=== PATIENT | female | born 1965 | race Caucasian/White ===

== ENCOUNTER 2017-09-27 11:21 | Inpatient (IN) | payer OTHER, MEDICAID ==
[~2017-09-27] VITALS: Ht 162.6 cm; Wt 63.1 kg
[~2017-09-27 11:21] MED LIST: LURA80 PO
[2017-09-27] MEDS ORDERED: DiphenhydrAMINE HCL 50 MG/ML VIAL IM ONE (11:30)
[2017-09-27] MEDS ORDERED: HALOPERIDOL LACTATE 5 MG/ML VIAL IM ONE (11:30)
[2017-09-27] MEDS ORDERED: LORazepam 2 MG/ML VIAL IM ONE (11:30)
[2017-09-27 12:09] LABS: BASOPHILS % (AUTO) 0.8 % (0.0-2.0); EOSINOPHILS % (AUTO) 1.5 % (1.0-6.0); HEMATOCRIT 36.3 % (36-46); HEMOGLOBIN 12.1 g/dL (12.0-16.0); LYMPHOCYTES # (AUTO) 2.1 K/uL (1.0-4.8); LYMPHOCYTES % (AUTO) 46.4 % (22.0-44.0); MEAN CORPUSCULAR HEMOGLOBIN 29.9 pg (26.0-34.0); MEAN CORPUSCULAR HGB CONC 33.4 G/dL (31.0-37.0); MEAN CORPUSCULAR VOLUME 89 fL (80-100); MONOCYTES # (AUTO) 0.4 K/uL (0.1-1.0); NEUTROPHILS # (AUTO) 1.9 K/uL (1.8-7.7); NEUTROPHILS % (AUTO) 43.3 % (40.0-70.0); PLATELET COUNT (AUTO) 288 K/uL (150-450); RED BLOOD CELL COUNT(AUTO) 4.06 MIL/uL (4.00-5.20); RED CELL DISTRIBUTION WIDTH 17.4 % (11.5-14.5)
[2017-09-27 12:25] LABS: ALANINE AMINOTRANSFERASE 23 U/L (12-78); ALBUMIN 3.3 g/dL (3.4-5.0); ALKALINE PHOSPHATASE 66 U/L (46-116); ANION GAP 11 mmol/L (8-16); ASPARTATE AMINOTRANSFERASE 20 U/L (15-37); BILIRUBIN,TOTAL 0.4 mg/dL (0.1-1.0); CALCIUM, TOTAL 8.8 mg/dL (8.8-10.5); CARBON DIOXIDE 27 mmol/L (22-29); CHLORIDE 105 mmol/L (98-107); CREATININE 0.53 mg/dL (0.60-1.30); GLOMERULAR FILTR. RATE CALC > 60 mL/min (>60); GLUCOSE,RANDOM 113 mg/dL (70-110); SODIUM SERUM 143 mmol/L (136-145); TOTAL PROTEIN, SERUM 6.6 g/dL (6.4-8.2); UREA NITROGEN, BLOOD 10 mg/dL (7-18)
[2017-09-27 12:27] LABS: POTASSIUM 2.9 mmol/L (3.5-5.1)
[2017-09-27] MEDS: POTASSIUM CHLORIDE 20 MEQ ER TABLET PO ONE ×2 (12:45→12:52)
[2017-09-27] MEDS ORDERED: HALOPERIDOL 5 MG TABLET PO PRN (13:45)
[2017-09-27] MEDS ORDERED: ZOLPIDEM TARTRATE 10 MG TABLET PO PRN (13:45)
[2017-09-27 18:50] VITALS: BP 103/62
[2017-09-27] MEDS ORDERED: INFLUENZA VIRUS VACCINE QVS 2017-18 (3YR+)/PF 60 MCG/0.5 ML SYRINGE IM ONE (19:15)
[2017-09-28] MEDS ORDERED: POTASSIUM CHLORIDE 10% 40 MEQ/30 ML LIQUID UDCUP PO ONE (10:00)
[2017-09-29 09:01] VITALS: BP 125/75
[2017-09-29] MEDS: OLANZapine 5 MG RAPDIS TABLET PO SCH (16:43)
[2017-09-30] MEDS: OLANZapine 5 MG RAPDIS TABLET PO SCH ×2 (08:51→17:00)
[2017-09-30] MEDS ORDERED: HALOPERIDOL LACTATE 5 MG/ML VIAL ONE (16:27)
[2017-09-30] MEDS ORDERED: LORazepam 2 MG/ML VIAL ONE (16:27)
[2017-09-30] MEDS ORDERED: DiphenhydrAMINE HCL 50 MG/ML VIAL ONE (16:27)
[2017-09-30] MEDS ORDERED: LORazepam 2 MG/ML VIAL IM ONE (16:30)
[2017-09-30] MEDS ORDERED: HALOPERIDOL LACTATE 5 MG/ML VIAL IM ONE (16:30)
[2017-09-30] MEDS ORDERED: DiphenhydrAMINE HCL 50 MG/ML VIAL IM ONE (16:30)
[2017-10-01] MEDS: OLANZapine 5 MG RAPDIS TABLET PO SCH ×2 (09:00→17:00)
[2017-10-02] MEDS: OLANZapine 5 MG RAPDIS TABLET PO SCH ×2 (08:03→16:23)
[2017-10-02 09:00] VITALS: BP 131/94
[2017-10-02] MEDS: NICOTINE 14 MG/24 HOUR PATCH TD SCH (20:49)
[2017-10-03 03:51] VITALS: BP 128/88
[2017-10-03] MEDS: OLANZapine 5 MG RAPDIS TABLET PO SCH ×2 (08:38→17:00)
[2017-10-03] MEDS: NICOTINE 14 MG/24 HOUR PATCH TD SCH (08:38)
[2017-10-03] MEDS: IBUPROFEN 400 MG TABLET PO PRN (10:21)
[2017-10-03] MEDS ORDERED: LORazepam 2 MG/ML VIAL ONE (16:33)
[2017-10-03] MEDS ORDERED: DiphenhydrAMINE HCL 50 MG/ML VIAL ONE (16:33)
[2017-10-03] MEDS ORDERED: DiphenhydrAMINE HCL 50 MG/ML VIAL IM ONE (16:45)
[2017-10-03] MEDS ORDERED: LORazepam 2 MG/ML VIAL IM ONE (16:45)
[2017-10-03] MEDS ORDERED: HALOPERIDOL LACTATE 5 MG/ML VIAL IM ONE (16:45)
[2017-10-04] MEDS: NICOTINE 14 MG/24 HOUR PATCH TD SCH (08:40)
[2017-10-04] MEDS: OLANZapine 5 MG RAPDIS TABLET PO SCH ×2 (08:40→17:00)
[2017-10-05] MEDS: OLANZapine 5 MG RAPDIS TABLET PO SCH ×2 (08:33→17:00)
[2017-10-05] MEDS: NICOTINE 14 MG/24 HOUR PATCH TD SCH (08:33)
[2017-10-05 08:38] VITALS: BP 119/70
[2017-10-05] MEDS ORDERED: IOVERSOL 350 MG/ML 100 ML VIAL ONE (10:31)
[2017-10-06] MEDS: NICOTINE 14 MG/24 HOUR PATCH TD SCH ×2 (09:00→09:41)
[2017-10-06] MEDS: OLANZapine 5 MG RAPDIS TABLET PO SCH ×3 (09:00→17:00)
[2017-10-06 16:12] VITALS: BP 128/85
[2017-10-07] MEDS: IBUPROFEN 400 MG TABLET PO PRN (05:18)
[2017-10-07] MEDS: NICOTINE 14 MG/24 HOUR PATCH TD SCH (08:23)
[2017-10-07] MEDS: OLANZapine 5 MG RAPDIS TABLET PO SCH ×2 (08:23→17:00)
[2017-10-08 08:03] LABS: HEMATOCRIT 37.3 % (36-46); HEMOGLOBIN 12.5 g/dL (12.0-16.0); LYMPHOCYTES # (AUTO) 1.8 K/uL (1.0-4.8); LYMPHOCYTES % (AUTO) 34.3 % (22.0-44.0); MEAN CORPUSCULAR HEMOGLOBIN 30.3 pg (26.0-34.0); MEAN CORPUSCULAR HGB CONC 33.7 G/dL (31.0-37.0); MEAN CORPUSCULAR VOLUME 90 fL (80-100); MONOCYTES # (AUTO) 0.4 K/uL (0.1-1.0); MONOCYTES % (AUTO) 6.7 % (2.0-9.0); PLATELET COUNT (AUTO) 366 K/uL (150-450); RED BLOOD CELL COUNT(AUTO) 4.15 MIL/uL (4.00-5.20); RED CELL DISTRIBUTION WIDTH 16.7 % (11.5-14.5)
[2017-10-08 08:23] LABS: HEMOGLOBIN A1C 5.7 % (4.5-6.2)
[2017-10-08 08:38] LABS: ALANINE AMINOTRANSFERASE 32 U/L (12-78); ALBUMIN 3.8 g/dL (3.4-5.0); ALKALINE PHOSPHATASE 66 U/L (46-116); ANION GAP 7 mmol/L (8-16); ASPARTATE AMINOTRANSFERASE 17 U/L (15-37); BILIRUBIN,TOTAL 0.2 mg/dL (0.1-1.0); CALCIUM, TOTAL 9.1 mg/dL (8.8-10.5); CARBON DIOXIDE 32 mmol/L (22-29); CHLORIDE 102 mmol/L (98-107); CHOL/HDL RATIO 3.4 (3.9-5.7); CHOLESTEROL 206 mg/dL (131-200); CREATININE 0.57 mg/dL (0.60-1.30); GLOMERULAR FILTR. RATE CALC > 60 mL/min (>60); GLUCOSE,RANDOM 100 mg/dL (70-110); HDL CHOLESTEROL 60 mg/dL (40-60); LDL CHOL (CALC.) 134 mg/dL (0-130); POTASSIUM 4.5 mmol/L (3.5-5.1); SODIUM SERUM 141 mmol/L (136-145); THYROID STIMULATING HORMONE 2.15 uIU/mL (0.36-3.74); TOTAL PROTEIN, SERUM 7.2 g/dL (6.4-8.2); TRIGLYCERIDES 59 mg/dL (15-150); UREA NITROGEN, BLOOD 16 mg/dL (7-18)
[2017-10-08] MEDS: NICOTINE 14 MG/24 HOUR PATCH TD SCH (08:47)
[2017-10-08] MEDS: OLANZapine 5 MG RAPDIS TABLET PO SCH ×2 (08:47→17:00)
[2017-10-09] MEDS: NICOTINE 14 MG/24 HOUR PATCH TD SCH (09:00)
[2017-10-09] MEDS: OLANZapine 5 MG RAPDIS TABLET PO SCH ×2 (09:00→16:22)
[2017-10-09] MEDS ORDERED: LORazepam 2 MG/ML VIAL IM ONE (09:30)
[2017-10-09] MEDS ORDERED: HALOPERIDOL LACTATE 5 MG/ML VIAL IM ONE (09:30)
[2017-10-09] MEDS ORDERED: DiphenhydrAMINE HCL 50 MG/ML VIAL IM ONE (09:30)
[2017-10-10] MEDS: OLANZapine 5 MG RAPDIS TABLET PO SCH ×2 (08:46→17:00)
[2017-10-10] MEDS: NICOTINE 14 MG/24 HOUR PATCH TD SCH (08:46)
[2017-10-11 03:20] VITALS: BP 126/63
[2017-10-11] MEDS: ACETAMINOPHEN 325 MG TABLET PO PRN (03:25)
[2017-10-11] MEDS: NICOTINE 14 MG/24 HOUR PATCH TD SCH (08:04)
[2017-10-11] MEDS: OLANZapine 5 MG RAPDIS TABLET PO SCH ×2 (08:04→17:00)
[2017-10-11] MEDS: LORazepam 2 MG TABLET PO PRN (08:36)
[2017-10-11 09:00] VITALS: BP 133/89
[2017-10-11 16:42] VITALS: BP 109/68
[2017-10-12] MEDS: NICOTINE 14 MG/24 HOUR PATCH TD SCH (08:13)
[2017-10-12] MEDS: OLANZapine 5 MG RAPDIS TABLET PO SCH ×2 (08:13→16:36)
[2017-10-13] MEDS: OLANZapine 5 MG RAPDIS TABLET PO SCH ×2 (08:41→16:12)
[2017-10-13] MEDS: NICOTINE 14 MG/24 HOUR PATCH TD SCH (08:41)
[2017-10-14 06:28] VITALS: BP 115/72
[2017-10-14] MEDS: OLANZapine 5 MG RAPDIS TABLET PO SCH ×2 (09:00→16:20)
[2017-10-14] MEDS: NICOTINE 14 MG/24 HOUR PATCH TD SCH (09:00)
[2017-10-14] MEDS: ACETAMINOPHEN 325 MG TABLET PO PRN (20:21)
[2017-10-14] MEDS ORDERED: ACETAMINOPHEN 325 MG TABLET PO PRN (21:30)
[2017-10-15 01:55] VITALS: BP 100/69
[2017-10-15] MEDS: NICOTINE 14 MG/24 HOUR PATCH TD SCH (07:59)
[2017-10-15] MEDS: OLANZapine 5 MG RAPDIS TABLET PO SCH ×2 (07:59→17:00)
[2017-10-15] MEDS ORDERED: HALOPERIDOL LACTATE 5 MG/ML VIAL IM PRN ×2 (10:15→17:45)
[2017-10-15 16:46] VITALS: BP 135/61
[2017-10-16 05:11] VITALS: BP 132/65
[2017-10-16] MEDS: HALOPERIDOL 10 MG TABLET PO SCH ×2 (08:06→16:28)
[2017-10-16] MEDS: NICOTINE 14 MG/24 HOUR PATCH TD SCH (08:06)
[2017-10-17] MEDS: HALOPERIDOL 10 MG TABLET PO SCH ×3 (08:45→16:58)
[2017-10-17] MEDS: NICOTINE 14 MG/24 HOUR PATCH TD SCH (08:46)
[2017-10-18 02:53] VITALS: BP 127/66
[2017-10-18] MEDS: HALOPERIDOL 10 MG TABLET PO SCH ×2 (08:31→16:25)
[2017-10-18] MEDS: LORazepam 2 MG TABLET PO PRN ×2 (08:31→18:10)
[2017-10-18] MEDS: NICOTINE 14 MG/24 HOUR PATCH TD SCH (08:32)
[2017-10-18 16:17] VITALS: BP 136/83
[2017-10-19] MEDS: NICOTINE 14 MG/24 HOUR PATCH TD SCH (07:58)
[2017-10-19] MEDS: HALOPERIDOL 10 MG TABLET PO SCH ×2 (07:58→16:23)
[2017-10-19] MEDS: LORazepam 2 MG TABLET PO PRN (08:41)
[2017-10-20] MEDS: LORazepam 2 MG TABLET PO PRN ×4 (01:00→17:46)
[2017-10-20 01:03] VITALS: BP 104/75
[2017-10-20] MEDS: HALOPERIDOL 10 MG TABLET PO SCH ×2 (08:00→16:38)
[2017-10-20] MEDS: NICOTINE 14 MG/24 HOUR PATCH TD SCH (08:01)
[2017-10-21 00:31] VITALS: BP 112/67
[2017-10-21] MEDS: LORazepam 2 MG TABLET PO PRN ×3 (01:31→16:27)
[2017-10-21 08:25] VITALS: BP 117/66
[2017-10-21] MEDS: HALOPERIDOL 10 MG TABLET PO SCH ×2 (08:46→16:11)
[2017-10-21] MEDS: NICOTINE 14 MG/24 HOUR PATCH TD SCH (08:46)
[2017-10-22 00:42] VITALS: BP 110/71
[2017-10-22] MEDS: LORazepam 2 MG TABLET PO PRN ×4 (00:44→18:01)
[2017-10-22] MEDS: HALOPERIDOL 10 MG TABLET PO SCH ×2 (07:50→16:47)
[2017-10-22] MEDS: NICOTINE 14 MG/24 HOUR PATCH TD SCH (07:50)
[2017-10-22 08:23] VITALS: BP 117/76
[2017-10-23 05:46] VITALS: BP 117/75
[2017-10-23 08:07] VITALS: BP 130/69
[2017-10-23] MEDS: NICOTINE 14 MG/24 HOUR PATCH TD SCH (08:10)
[2017-10-23] MEDS: HALOPERIDOL 10 MG TABLET PO SCH (08:10)
[2017-10-23] MEDS: LORazepam 2 MG TABLET PO PRN (08:10)
[2017-10-23] MEDS ORDERED: HALOPERIDOL DECANOATE 100 MG/ML VIAL IM SCH (10:45)
== END 2017-10-23 14:00 | disposition home or self-care (01) | DRG 885 ==
LOC: EMS 11:25 → B3A 17:14 → EDBD 17:14 → B3A 10-17 21:32
PROVIDERS: ADMIT Psychiatry & Neurology Child & Adolescent Psychiatry; ATTEND Psychiatry & Neurology Child & Adolescent Psychiatry
DX: F20.0 Paranoid schizophrenia (principal); Z59.0 Homelessness; E87.6 Hypokalemia; F32.9 Major depressive disorder, single episode, unspecified; F41.9 Anxiety disorder, unspecified; Z91.19 Patient's noncompliance with other medical treatment and regimen
CPT/HCPCS: 83036; 84443; 87081; 90471; 96372; 99285; G0480; J1200; J1630; J1631; J2060

== ENCOUNTER 2022-01-10 15:06 | Emergency (ER) | payer MEDICARE, MEDICAID ==
[~2022-01-10] VITALS: Ht 165.1 cm; Wt 86.4 kg
[~2022-01-10 15:06] MED LIST changes: -LURA80 PO; +LURA80TA2 PO
[2022-01-10 18:52] VITALS: BP 125/83
== END 2022-01-10 19:05 | disposition home or self-care (01) ==
LOC: EMS 15:15
DX: F41.9 Anxiety disorder, unspecified (principal); F32.9 Major depressive disorder, single episode, unspecified; F15.90 Other stimulant use, unspecified, uncomplicated; Z88.6 Allergy status to analgesic agent; Z88.8 Allergy status to other drugs, medicaments and biological substances
CPT/HCPCS: 99283; Z7502

== ENCOUNTER 2022-01-21 08:01 | Inpatient (IN) | payer MEDICARE, MEDICAID ==
[~2022-01-21] VITALS: Ht 165.1 cm; Wt 82.7 kg
[2022-01-21] MEDS ORDERED: GuaiFENesin/D-METHORPHAN [SUGAR-FREE] 200-20MG/10 ML SYRUP UDCUP PO PRN (11:15)
[2022-01-21] MEDS ORDERED: ZOLPIDEM TARTRATE 10 MG TABLET PO PRN (11:15)
[2022-01-21] MEDS ORDERED: MAGNESIUM HYDROXIDE SUSPENSION 30 ML UDCUP PO PRN (11:15)
[2022-01-21] MEDS ORDERED: TUBERCULIN, PURIFIED PROTEIN DERIVATIVE 5 TU/0.1 ML SYRINGE ID ONE (11:15)
[2022-01-21] MEDS ORDERED: MAG HYDROX/AL HYDROX/SIMETH ES 30 ML SUSPENSION UDCUP PO PRN (11:15)
[2022-01-21] MEDS ORDERED: HydrOXYzine PAMOATE 50 MG CAPSULE PO PRN (11:15)
[2022-01-21] MEDS ORDERED: OLANZapine 5 MG RAPDIS TABLET PO PRN (11:15)
[2022-01-21] MEDS ORDERED: LORazepam 2 MG TABLET PO PRN (11:15)
[2022-01-21] MEDS ORDERED: PROMETHAZINE HCL 25 MG TABLET PO PRN (11:15)
[2022-01-21] MEDS ORDERED: LOPERAMIDE HCL 2 MG CAPSULE PO PRN (11:15)
[2022-01-21 11:19] LABS: ANION GAP 8 mmol/L (8-16); CALCIUM, TOTAL 9.2 mg/dL (8.8-10.5); CARBON DIOXIDE 26 mmol/L (22-29); CHLORIDE 101 mmol/L (98-107); CREATININE 0.42 mg/dL (0.60-1.30); GLUCOSE,RANDOM 108 mg/dL (70-110); POTASSIUM 3.8 mmol/L (3.5-5.1); SODIUM SERUM 135 mmol/L (136-145); UREA NITROGEN, BLOOD 7 mg/dL (7-18)
[2022-01-21 11:20] LABS: COVID AG,FIA SOURCE NASAL SWAB
[2022-01-21 11:21] LABS: GLOMERULAR FILTR. RATE CALC > 60 mL/min (>60)
[2022-01-21 11:23] LABS: ALANINE AMINOTRANSFERASE 21 U/L (12-78); ALBUMIN 3.4 g/dL (3.4-5.0); ALKALINE PHOSPHATASE 85 U/L (46-116); ASPARTATE AMINOTRANSFERASE 17 U/L (15-37); BILIRUBIN,TOTAL 0.2 mg/dL (0.1-1.0); TOTAL PROTEIN, SERUM 7.3 g/dL (6.4-8.2)
[2022-01-21 11:52] LABS: EOSINOPHILS % (AUTO) 0.9 % (1.0-6.0); HEMATOCRIT 41.5 % (36-46); HEMOGLOBIN 13.9 g/dL (12.0-16.0); LYMPHOCYTES # (AUTO) 1.7 K/uL (1.0-4.8); MEAN CORPUSCULAR HEMOGLOBIN 31.1 pg (26.0-34.0); MEAN CORPUSCULAR HGB CONC 33.5 G/dL (31.0-37.0); MEAN CORPUSCULAR VOLUME 93 fL (80-100); MONOCYTES # (AUTO) 0.6 K/uL (0.1-1.0); MONOCYTES % (AUTO) 13.4 % (2.0-9.0); NEUTROPHILS # (AUTO) 2.2 K/uL (1.8-7.7); NEUTROPHILS % (AUTO) 48.7 % (40.0-70.0); PLATELET COUNT (AUTO) 371 K/uL (150-450); RED BLOOD CELL COUNT(AUTO) 4.47 MIL/uL (4.00-5.20); RED CELL DISTRIBUTION WIDTH 15.3 % (11.5-14.5)
[2022-01-21 16:25] VITALS: BP 110/59
[2022-01-21] MEDS: THIAMINE 100 MG TABLET PO SCH (16:27)
[2022-01-21] MEDS: MELATONIN 5 MG TABLET PO SCH (20:22)
[2022-01-21] MEDS ORDERED: OLANZapine 5 MG RAPDIS TABLET PO SCH (21:00)
[2022-01-22 07:16] VITALS: BP 108/62
[2022-01-22] MEDS ORDERED: PNEUMOCOCCAL VACCINE POLYVALENT 0.5 ML VIAL [PPSV23] IM. ONE (08:00)
[2022-01-22 08:04] VITALS: BP 120/61
[2022-01-22] MEDS: FOLIC ACID 1 MG TABLET PO SCH (08:17)
[2022-01-22] MEDS: NALTREXONE HCL 50 MG TABLET PO SCH (08:17)
[2022-01-22] MEDS: THIAMINE 100 MG TABLET PO SCH ×2 (08:17→16:49)
[2022-01-22] MEDS: OMEGA-3/DHA/EPA/FISH OIL 1,000 MG CAPSULE PO SCH (08:17)
[2022-01-22] MEDS: MULTIVITAMINS WITH MINERALS, THERAPEUTIC TABLET PO SCH (08:17)
[2022-01-22] MEDS: GABAPENTIN 300 MG CAPSULE PO PRN (16:13)
[2022-01-22] MEDS: NICOTINE 21 MG/24 HOUR PATCH TD SCH (16:14)
[2022-01-22] MEDS: MELATONIN 5 MG TABLET PO SCH (22:12)
[2022-01-23 00:30] VITALS: BP 117/62
[2022-01-23 04:12] VITALS: BP 114/90
[2022-01-23] MEDS: ACETAMINOPHEN 325 MG TABLET PO PRN ×2 (04:16→09:42)
[2022-01-23 07:26] LABS: BASOPHILS % (AUTO) 0.7 % (0.0-2.0); EOSINOPHILS % (AUTO) 1.5 % (1.0-6.0); HEMATOCRIT 39.6 % (36-46); HEMOGLOBIN 13.3 g/dL (12.0-16.0); LYMPHOCYTES # (AUTO) 1.6 K/uL (1.0-4.8); LYMPHOCYTES % (AUTO) 34.5 % (22.0-44.0); MEAN CORPUSCULAR HGB CONC 33.5 G/dL (31.0-37.0); MEAN CORPUSCULAR VOLUME 92 fL (80-100); MONOCYTES # (AUTO) 0.6 K/uL (0.1-1.0); NEUTROPHILS # (AUTO) 2.4 K/uL (1.8-7.7); NEUTROPHILS % (AUTO) 51.3 % (40.0-70.0); PLATELET COUNT (AUTO) 346 K/uL (150-450); RED BLOOD CELL COUNT(AUTO) 4.28 MIL/uL (4.00-5.20)
[2022-01-23 07:33] LABS: HEMOGLOBIN A1C 5.7 % (3.8-5.6)
[2022-01-23 07:58] LABS: CHOL/HDL RATIO 3.6 (3.9-5.7); FREE T4 (FREE THYROXINE) 1.16 ng/dL (0.76-1.46); THYROID STIMULATING HORMONE 0.56 uIU/mL (0.36-3.74)
[2022-01-23 08:13] VITALS: BP 145/79
[2022-01-23] MEDS: OMEGA-3/DHA/EPA/FISH OIL 1,000 MG CAPSULE PO SCH (08:18)
[2022-01-23] MEDS: THIAMINE 100 MG TABLET PO SCH ×2 (08:18→16:09)
[2022-01-23] MEDS: FOLIC ACID 1 MG TABLET PO SCH (08:18)
[2022-01-23] MEDS: MULTIVITAMINS WITH MINERALS, THERAPEUTIC TABLET PO SCH (08:18)
[2022-01-23] MEDS: NICOTINE 21 MG/24 HOUR PATCH TD SCH (08:19)
[2022-01-23] MEDS: NALTREXONE HCL 50 MG TABLET PO SCH (08:24)
[2022-01-23] MEDS ORDERED: CloZAPine 25 MG TABLET PO SCH (09:00)
[2022-01-23] MEDS ORDERED: HALOPERIDOL LACTATE 5 MG/ML VIAL IM PRN (14:30)
[2022-01-23 16:07] VITALS: BP 117/75
[2022-01-23] MEDS: MELATONIN 5 MG TABLET PO SCH (20:08)
[2022-01-24 06:27] VITALS: BP 144/77
[2022-01-24 08:20] VITALS: BP 142/82
[2022-01-24] MEDS: THIAMINE 100 MG TABLET PO SCH ×2 (08:29→16:08)
[2022-01-24] MEDS: NALTREXONE HCL 50 MG TABLET PO SCH (08:29)
[2022-01-24] MEDS: NICOTINE 21 MG/24 HOUR PATCH TD SCH (08:30)
[2022-01-24] MEDS: MULTIVITAMINS WITH MINERALS, THERAPEUTIC TABLET PO SCH (08:30)
[2022-01-24] MEDS: FOLIC ACID 1 MG TABLET PO SCH (08:30)
[2022-01-24] MEDS: OMEGA-3/DHA/EPA/FISH OIL 1,000 MG CAPSULE PO SCH (08:30)
[2022-01-24] MEDS ORDERED: CloZAPine 25 MG TABLET PO SCH ×2 (09:00→21:00)
[2022-01-24] MEDS: MELATONIN 5 MG TABLET PO SCH (20:06)
[2022-01-24] MEDS ORDERED: OLANZapine 5 MG RAPDIS TABLET PO SCH (21:00)
[2022-01-25 06:43] VITALS: BP 138/82
[2022-01-25] MEDS ORDERED: CloZAPine 25 MG TABLET PO SCH ×2 (09:00→21:00)
[2022-01-25] MEDS: NALTREXONE HCL 50 MG TABLET PO SCH (09:34)
[2022-01-25] MEDS: FOLIC ACID 1 MG TABLET PO SCH (09:34)
[2022-01-25] MEDS: OMEGA-3/DHA/EPA/FISH OIL 1,000 MG CAPSULE PO SCH (09:34)
[2022-01-25] MEDS: THIAMINE 100 MG TABLET PO SCH ×2 (09:34→16:20)
[2022-01-25] MEDS: MULTIVITAMINS WITH MINERALS, THERAPEUTIC TABLET PO SCH (09:34)
[2022-01-25] MEDS: NICOTINE POLACRILEX 2 MG LOZENGE PO PRN ×2 (09:43→13:56)
[2022-01-25 10:02] VITALS: BP 136/78
[2022-01-25 16:13] VITALS: BP 134/82
[2022-01-25] MEDS: MELATONIN 5 MG TABLET PO SCH (20:26)
[2022-01-25] MEDS: OLANZapine 10 MG RAPDIS TABLET PO SCH (20:27)
[2022-01-26 01:05] VITALS: BP 134/82
[2022-01-26] MEDS: NICOTINE POLACRILEX 2 MG LOZENGE PO PRN ×3 (06:15→18:28)
[2022-01-26 08:21] VITALS: BP 134/66
[2022-01-26] MEDS: OMEGA-3/DHA/EPA/FISH OIL 1,000 MG CAPSULE PO SCH (08:47)
[2022-01-26] MEDS: THIAMINE 100 MG TABLET PO SCH ×2 (08:47→16:11)
[2022-01-26] MEDS: MULTIVITAMINS WITH MINERALS, THERAPEUTIC TABLET PO SCH (08:48)
[2022-01-26] MEDS: NALTREXONE HCL 50 MG TABLET PO SCH (08:48)
[2022-01-26] MEDS: FOLIC ACID 1 MG TABLET PO SCH (08:48)
[2022-01-26] MEDS ORDERED: CloZAPine 25 MG TABLET PO SCH (09:00)
[2022-01-26 10:16] LABS: GLUCOMETER DEV NAME(LOC) POC.BV
[2022-01-26 16:15] VITALS: BP 147/85
[2022-01-26] MEDS: MELATONIN 5 MG TABLET PO SCH (20:05)
[2022-01-26] MEDS: OLANZapine 10 MG RAPDIS TABLET PO SCH (20:05)
[2022-01-27 05:34] VITALS: BP 120/82
[2022-01-27] MEDS: NICOTINE POLACRILEX 2 MG LOZENGE PO PRN ×4 (07:05→20:32)
[2022-01-27 08:24] VITALS: BP 119/69
[2022-01-27] MEDS: MULTIVITAMINS WITH MINERALS, THERAPEUTIC TABLET PO SCH (09:08)
[2022-01-27] MEDS: THIAMINE 100 MG TABLET PO SCH ×2 (09:08→16:43)
[2022-01-27] MEDS: OMEGA-3/DHA/EPA/FISH OIL 1,000 MG CAPSULE PO SCH (09:08)
[2022-01-27] MEDS: NALTREXONE HCL 50 MG TABLET PO SCH (09:08)
[2022-01-27] MEDS: FOLIC ACID 1 MG TABLET PO SCH (09:08)
[2022-01-27] MEDS: ACETAMINOPHEN 325 MG TABLET PO PRN (12:34)
[2022-01-27 16:23] VITALS: BP 133/85
[2022-01-27] MEDS: MELATONIN 5 MG TABLET PO SCH (20:24)
[2022-01-27] MEDS: OLANZapine 10 MG RAPDIS TABLET PO SCH (20:24)
[2022-01-28 06:23] VITALS: BP 145/91
[2022-01-28] MEDS: NICOTINE POLACRILEX 2 MG LOZENGE PO PRN ×3 (07:00→16:35)
[2022-01-28] MEDS: OMEGA-3/DHA/EPA/FISH OIL 1,000 MG CAPSULE PO SCH (08:45)
[2022-01-28] MEDS: MULTIVITAMINS WITH MINERALS, THERAPEUTIC TABLET PO SCH (08:45)
[2022-01-28] MEDS: NALTREXONE HCL 50 MG TABLET PO SCH (08:45)
[2022-01-28] MEDS: FOLIC ACID 1 MG TABLET PO SCH (08:45)
[2022-01-28] MEDS: THIAMINE 100 MG TABLET PO SCH ×2 (08:45→16:29)
[2022-01-28 08:51] VITALS: BP 138/88
[2022-01-28] MEDS ORDERED: CloZAPine 25 MG TABLET PO SCH (09:00)
[2022-01-28] MEDS: GABAPENTIN 300 MG CAPSULE PO PRN (10:34)
[2022-01-28] MEDS ORDERED: OLAN10TA26 PO (15:47)
[2022-01-28] MEDS ORDERED: NALT50TA PO (15:47)
[2022-01-28] MEDS ORDERED: OMEG-108 PO (15:47)
[2022-01-28] MEDS ORDERED: MELA5TAB40 PO (15:47)
[2022-01-28 16:32] VITALS: BP 128/84
[2022-01-28] MEDS: MELATONIN 5 MG TABLET PO SCH (20:29)
[2022-01-28] MEDS: OLANZapine 10 MG RAPDIS TABLET PO SCH (20:30)
[2022-01-28] MEDS ORDERED: CloZAPine 100 MG TABLET PO SCH (21:00)
[2022-01-29 01:11] VITALS: BP 124/82
[2022-01-29] MEDS: NICOTINE POLACRILEX 2 MG LOZENGE PO PRN ×3 (05:17→14:14)
[2022-01-29] MEDS ORDERED: CloZAPine 25 MG TABLET PO SCH (09:00)
[2022-01-29 09:13] VITALS: BP 147/97
[2022-01-29] MEDS: MULTIVITAMINS WITH MINERALS, THERAPEUTIC TABLET PO SCH (09:52)
[2022-01-29] MEDS: OMEGA-3/DHA/EPA/FISH OIL 1,000 MG CAPSULE PO SCH (09:52)
[2022-01-29] MEDS: THIAMINE 100 MG TABLET PO SCH (09:52)
[2022-01-29] MEDS: FOLIC ACID 1 MG TABLET PO SCH (09:52)
[2022-01-29] MEDS: NALTREXONE HCL 50 MG TABLET PO SCH (09:52)
[2022-01-29] MEDS ORDERED: CloZAPine 100 MG TABLET PO SCH (21:00)
[2022-01-30] MEDS ORDERED: CloZAPine 25 MG TABLET PO SCH (09:00)
[2022-01-30] MEDS ORDERED: CloZAPine 100 MG TABLET PO SCH (21:00)
[2022-01-31] MEDS ORDERED: CloZAPine 100 MG TABLET PO SCH (09:00)
[2022-02-02] MEDS ORDERED: CloZAPine 25 MG TABLET PO SCH (09:00)
[2022-02-02] MEDS ORDERED: CloZAPine 100 MG TABLET PO SCH (21:00)
[2022-02-03] MEDS ORDERED: CloZAPine 25 MG TABLET PO SCH (09:00)
[2022-02-03] MEDS ORDERED: CloZAPine 100 MG TABLET PO SCH (21:00)
[2022-02-04] MEDS ORDERED: CloZAPine 100 MG TABLET PO SCH ×2 (09:00→21:00)
== END 2022-01-29 15:19 | disposition home or self-care (01) | DRG 885 ==
LOC: EMS 08:01 → B2S 13:36
PROVIDERS: ADMIT Psychiatry & Neurology Psychiatry; ATTEND Psychiatry & Neurology Psychiatry
DX: F20.9 Schizophrenia, unspecified (principal); J44.9 Chronic obstructive pulmonary disease, unspecified; K21.9 Gastro-esophageal reflux disease without esophagitis; I10 Essential (primary) hypertension; F22 Delusional disorders; E87.6 Hypokalemia; F19.21 Other psychoactive substance dependence, in remission; E78.5 Hyperlipidemia, unspecified; Z20.822 Contact with and (suspected) exposure to COVID-19; F17.210 Nicotine dependence, cigarettes, uncomplicated; Z55.9 Problems related to education and literacy, unspecified; Z63.9 Problem related to primary support group, unspecified; Z65.3 Problems related to other legal circumstances; Z59.00 Homelessness unspecified; Z91.19 Patient's noncompliance with other medical treatment and regimen; Z88.8 Allergy status to other drugs, medicaments and biological substances; Z88.6 Allergy status to analgesic agent
CPT/HCPCS: 80053; 80061; 83036; 84439; 84443; 85025; 86592; 90732; 99285; G0480; J1630; Q9967

== ENCOUNTER 2022-03-24 15:55 | Emergency (ER) | payer MEDICARE, MEDICAID ==
[~2022-03-24] VITALS: Ht 165.1 cm; Wt 86.4 kg
[~2022-03-24 15:55] MED LIST changes: -LURA80TA2 PO; +MELA5TAB40 PO; +NALT50TA PO; +OLAN10TA26 PO; +OMEG-108 PO
[2022-03-24 17:19] VITALS: BP 108/69
== END 2022-03-24 23:00 | disposition home or self-care (01) ==
LOC: EMS 16:00
DX: F20.9 Schizophrenia, unspecified (principal); F31.9 Bipolar disorder, unspecified; F17.210 Nicotine dependence, cigarettes, uncomplicated; F15.90 Other stimulant use, unspecified, uncomplicated; Z86.69 Personal history of other diseases of the nervous system and sense organs; Z86.39 Personal history of other endocrine, nutritional and metabolic disease; Z98.890 Other specified postprocedural states; Z88.8 Allergy status to other drugs, medicaments and biological substances
CPT/HCPCS: 99281

== ENCOUNTER 2022-04-01 20:20 | Emergency (ER) | payer MEDICARE, MEDICAID ==
[~2022-04-01] VITALS: Ht 165.1 cm; Wt 90.0 kg
[2022-04-01 22:56] LABS: BASOPHILS % (AUTO) 0.7 % (0.0-2.0); EOSINOPHILS % (AUTO) 0.9 % (1.0-6.0); HEMATOCRIT 39.4 % (36-46); HEMOGLOBIN 13.4 g/dL (12.0-16.0); LYMPHOCYTES % (AUTO) 30.6 % (22.0-44.0); MEAN CORPUSCULAR HEMOGLOBIN 30.2 pg (26.0-34.0); MEAN CORPUSCULAR HGB CONC 33.9 G/dL (31.0-37.0); MEAN CORPUSCULAR VOLUME 89 fL (80-100); MONOCYTES # (AUTO) 0.5 K/uL (0.1-1.0); MONOCYTES % (AUTO) 7.1 % (2.0-9.0); NEUTROPHILS # (AUTO) 3.9 K/uL (1.8-7.7); NEUTROPHILS % (AUTO) 60.7 % (40.0-70.0); PLATELET COUNT (AUTO) 348 K/uL (150-450); RED BLOOD CELL COUNT(AUTO) 4.43 MIL/uL (4.00-5.20); RED CELL DISTRIBUTION WIDTH 15.2 % (11.5-14.5)
[2022-04-01 23:07] LABS: ANION GAP 6 mmol/L (8-16); CARBON DIOXIDE 28 mmol/L (22-29); CHLORIDE 100 mmol/L (98-107); CREATININE 0.66 mg/dL (0.60-1.30); GLUCOSE,RANDOM 101 mg/dL (70-110); POTASSIUM 3.7 mmol/L (3.5-5.1); SODIUM SERUM 134 mmol/L (136-145); UREA NITROGEN, BLOOD 10 mg/dL (7-18)
[2022-04-01 23:08] LABS: CALCIUM, TOTAL 9.5 mg/dL (8.8-10.5); GLOMERULAR FILTR. RATE CALC > 60 mL/min (>60)
[2022-04-01 23:14] LABS: ALANINE AMINOTRANSFERASE 25 U/L (12-78); ALBUMIN 3.4 g/dL (3.4-5.0); ALKALINE PHOSPHATASE 89 U/L (46-116); ASPARTATE AMINOTRANSFERASE 18 U/L (15-37); BILIRUBIN,TOTAL 0.1 mg/dL (0.1-1.0); TOTAL PROTEIN, SERUM 7.1 g/dL (6.4-8.2)
[2022-04-01 23:27] LABS: AMPHET/METH SCREEN,URINE NEGATIVE (NEGATIVE); BARBITURATE SCREEN, URINE NEGATIVE (NEGATIVE); BENZODIAZEPINES SCREEN,URINE NEGATIVE (NEGATIVE); CANNABINOID SCREEN,URINE NEGATIVE (NEGATIVE); COCAINE SCREEN,URINE NEGATIVE (NEGATIVE); METHADONE SCREEN, URINE NEGATIVE (NEGATIVE); OPIATE SCREEN,URINE NEGATIVE (NEGATIVE)
[2022-04-01 23:29] LABS: PHENCYCLIDINE SCREEN,URINE NEGATIVE (NEGATIVE)
[2022-04-01 23:33] LABS: COVID AG,FIA SOURCE NASOPHARYNGEAL
[2022-04-02] MEDS ORDERED: LORazepam 2 MG TABLET PO ONE (01:45)
[2022-04-02] MEDS ORDERED: HALOPERIDOL LACTATE 5 MG/ML VIAL IM ONE (01:45)
[2022-04-02] MEDS ORDERED: LORazepam 2 MG/ML VIAL IM ONE (01:45)
[2022-04-02 08:00] VITALS: BP 125/78
== END 2022-04-02 08:30 | disposition home or self-care (01) ==
LOC: EMS 21:21
DX: F31.9 Bipolar disorder, unspecified (principal); F20.9 Schizophrenia, unspecified; F17.210 Nicotine dependence, cigarettes, uncomplicated; F15.90 Other stimulant use, unspecified, uncomplicated; Z86.69 Personal history of other diseases of the nervous system and sense organs; Z88.8 Allergy status to other drugs, medicaments and biological substances; Z20.822 Contact with and (suspected) exposure to COVID-19
CPT/HCPCS: 36415; 80053; 80307; 85025; 87426; 96372; 99285; G0480; J1630; J2060

== ENCOUNTER 2022-04-12 05:45 | Emergency (ER) | payer MEDICARE, MEDICAID ==
[~2022-04-12] VITALS: Ht 165.1 cm; Wt 85.0 kg
[2022-04-12 05:53] VITALS: BP 143/75
[2022-04-12] MEDS ORDERED: BENZTROPINE MESYLATE 1 MG/ML 2 ML VIAL IM ONE (06:15)
[2022-04-12] MEDS ORDERED: HALOPERIDOL LACTATE 5 MG/ML VIAL IM ONE (06:15)
[2022-04-12] MEDS ORDERED: LORazepam 2 MG TABLET PO ONE (06:15)
[2022-04-12] MEDS ORDERED: HALOPERIDOL 5 MG TABLET PO ONE (07:00)
[2022-04-12] MEDS ORDERED: BENZTROPINE MESYLATE 2 MG TABLET PO ONE (07:00)
[2022-04-12 07:34] LABS: BASOPHILS % (AUTO) 0.8 % (0.0-2.0); EOSINOPHILS % (AUTO) 0.8 % (1.0-6.0); HEMATOCRIT 38.9 % (36-46); HEMOGLOBIN 13.3 g/dL (12.0-16.0); LYMPHOCYTES # (AUTO) 1.5 K/uL (1.0-4.8); LYMPHOCYTES % (AUTO) 25.6 % (22.0-44.0); MEAN CORPUSCULAR HEMOGLOBIN 30.1 pg (26.0-34.0); MEAN CORPUSCULAR HGB CONC 34.1 G/dL (31.0-37.0); MEAN CORPUSCULAR VOLUME 88 fL (80-100); MONOCYTES # (AUTO) 0.6 K/uL (0.1-1.0); MONOCYTES % (AUTO) 9.8 % (2.0-9.0); NEUTROPHILS # (AUTO) 3.8 K/uL (1.8-7.7); PLATELET COUNT (AUTO) 334 K/uL (150-450); RED BLOOD CELL COUNT(AUTO) 4.41 MIL/uL (4.00-5.20); RED CELL DISTRIBUTION WIDTH 15.7 % (11.5-14.5)
[2022-04-12 07:45] LABS: ANION GAP 7 mmol/L (8-16); CALCIUM, TOTAL 8.8 mg/dL (8.8-10.5); CARBON DIOXIDE 27 mmol/L (22-29); CHLORIDE 104 mmol/L (98-107); CREATININE 0.58 mg/dL (0.60-1.30); GLOMERULAR FILTR. RATE CALC > 60 mL/min (>60); GLUCOSE,RANDOM 88 mg/dL (70-110); POTASSIUM 3.6 mmol/L (3.5-5.1); SODIUM SERUM 138 mmol/L (136-145); UREA NITROGEN, BLOOD 5 mg/dL (7-18)
[2022-04-12 07:48] LABS: ALANINE AMINOTRANSFERASE 25 U/L (12-78); ALBUMIN 3.4 g/dL (3.4-5.0); ALKALINE PHOSPHATASE 80 U/L (46-116); ASPARTATE AMINOTRANSFERASE 15 U/L (15-37); BILIRUBIN,TOTAL 0.2 mg/dL (0.1-1.0); TOTAL PROTEIN, SERUM 7.2 g/dL (6.4-8.2)
[2022-04-12 07:49] LABS: AMPHET/METH SCREEN,URINE NEGATIVE (NEGATIVE); BARBITURATE SCREEN, URINE NEGATIVE (NEGATIVE); BENZODIAZEPINES SCREEN,URINE NEGATIVE (NEGATIVE); CANNABINOID SCREEN,URINE NEGATIVE (NEGATIVE); COCAINE SCREEN,URINE NEGATIVE (NEGATIVE); METHADONE SCREEN, URINE NEGATIVE (NEGATIVE); OPIATE SCREEN,URINE NEGATIVE (NEGATIVE); PHENCYCLIDINE SCREEN,URINE NEGATIVE (NEGATIVE)
[2022-04-12] MEDS ORDERED: TRAZ150T80 PO (08:29)
[2022-04-12] MEDS ORDERED: RISP2TAB45 PO (09:35)
[2022-04-12] MEDS ORDERED: RisperiDONE 1 MG TABLET PO ONE (09:45)
== END 2022-04-12 10:26 | disposition home or self-care (01) ==
LOC: EMS 05:46
DX: F41.9 Anxiety disorder, unspecified (principal); G47.00 Insomnia, unspecified; F31.9 Bipolar disorder, unspecified; F20.9 Schizophrenia, unspecified; F17.210 Nicotine dependence, cigarettes, uncomplicated; F15.90 Other stimulant use, unspecified, uncomplicated; Z88.6 Allergy status to analgesic agent; Z88.8 Allergy status to other drugs, medicaments and biological substances; Z79.899 Other long term (current) drug therapy
CPT/HCPCS: 36415; 80053; 80307; 85025; 99284; G0480; J0515; J1630

== ENCOUNTER 2022-05-09 13:55 | Inpatient (IN) | payer MEDICARE, MEDICAID ==
[~2022-05-09] VITALS: Ht 165.1 cm; Wt 86.2 kg
[~2022-05-09 13:55] MED LIST changes: -NALT50TA PO; -OMEG-108 PO; +OMEG-135 PO; +RISP2TAB45 PO; +TRAZ150T80 PO
[2022-05-09 14:58] LABS: BASOPHILS % (AUTO) 0.6 % (0.0-2.0); HEMATOCRIT 43.9 % (36-46); HEMOGLOBIN 14.8 g/dL (12.0-16.0); LYMPHOCYTES # (AUTO) 1.8 K/uL (1.0-4.8); LYMPHOCYTES % (AUTO) 27.9 % (22.0-44.0); MEAN CORPUSCULAR HEMOGLOBIN 30.1 pg (26.0-34.0); MEAN CORPUSCULAR HGB CONC 33.8 G/dL (31.0-37.0); MEAN CORPUSCULAR VOLUME 89 fL (80-100); MONOCYTES # (AUTO) 0.7 K/uL (0.1-1.0); MONOCYTES % (AUTO) 10.9 % (2.0-9.0); NEUTROPHILS % (AUTO) 59.6 % (40.0-70.0); PLATELET COUNT (AUTO) 318 K/uL (150-450); RED BLOOD CELL COUNT(AUTO) 4.93 MIL/uL (4.00-5.20); RED CELL DISTRIBUTION WIDTH 16.2 % (11.5-14.5)
[2022-05-09] MEDS ORDERED: RisperiDONE 1 MG TABLET PO ONE (15:00)
[2022-05-09 15:11] LABS: ANION GAP 9 mmol/L (8-16); CALCIUM, TOTAL 9.5 mg/dL (8.8-10.5); CARBON DIOXIDE 28 mmol/L (22-29); CHLORIDE 98 mmol/L (98-107); CREATININE 0.63 mg/dL (0.60-1.30); GLUCOSE,RANDOM 95 mg/dL (70-110); POTASSIUM 3.9 mmol/L (3.5-5.1); SODIUM SERUM 135 mmol/L (136-145); UREA NITROGEN, BLOOD 12 mg/dL (7-18)
[2022-05-09 15:12] LABS: GLOMERULAR FILTR. RATE CALC > 60 mL/min (>60)
[2022-05-09 15:23] LABS: ALANINE AMINOTRANSFERASE 30 U/L (12-78); ALBUMIN 3.7 g/dL (3.4-5.0); ALKALINE PHOSPHATASE 90 U/L (46-116); ASPARTATE AMINOTRANSFERASE 16 U/L (15-37); BILIRUBIN,TOTAL 0.1 mg/dL (0.1-1.0); HCG,QUANTITATIVE < 1 mIU/mL (0-6); TOTAL PROTEIN, SERUM 7.6 g/dL (6.4-8.2)
[2022-05-09 16:09] LABS: AMPHET/METH SCREEN,URINE NEGATIVE (NEGATIVE); BARBITURATE SCREEN, URINE NEGATIVE (NEGATIVE); BENZODIAZEPINES SCREEN,URINE NEGATIVE (NEGATIVE); CANNABINOID SCREEN,URINE NEGATIVE (NEGATIVE); COCAINE SCREEN,URINE NEGATIVE (NEGATIVE); METHADONE SCREEN, URINE NEGATIVE (NEGATIVE); OPIATE SCREEN,URINE NEGATIVE (NEGATIVE)
[2022-05-09 16:09] LABS: COVID AG,FIA SOURCE NASOPHARYNGEAL
[2022-05-09 16:12] LABS: PHENCYCLIDINE SCREEN,URINE NEGATIVE (NEGATIVE)
[2022-05-09] MEDS ORDERED: ZOLPIDEM TARTRATE 10 MG TABLET PO PRN (16:30)
[2022-05-09] MEDS ORDERED: PNEUMOCOCCAL VACCINE POLYVALENT 0.5 ML VIAL [PPSV23] IM. ONE (22:15)
[2022-05-09 22:55] VITALS: BP 135/79
[2022-05-10 08:50] VITALS: BP 106/59
[2022-05-10] MEDS ORDERED: MAG HYDROX/AL HYDROX/SIMETH ES 30 ML SUSPENSION UDCUP PO PRN (10:45)
[2022-05-10] MEDS ORDERED: ALBUTEROL SULFATE HFA 90 MCG/PUFF 8 GM INHALER IH PRN (10:45)
[2022-05-10] MEDS ORDERED: LOPERAMIDE HCL 2 MG CAPSULE PO PRN (10:45)
[2022-05-10] MEDS ORDERED: GuaiFENesin/D-METHORPHAN [SUGAR-FREE] 200-20MG/10 ML SYRUP UDCUP PO PRN (10:45)
[2022-05-10] MEDS ORDERED: MAGNESIUM HYDROXIDE SUSPENSION 30 ML UDCUP PO PRN (10:45)
[2022-05-10] MEDS ORDERED: PETROLATUM,WHITE 28 GM JELLY TP PRN (10:45)
[2022-05-10] MEDS ORDERED: CloNIDine HCL 0.1 MG TABLET PO PRN (10:45)
[2022-05-10] MEDS ORDERED: ACETAMINOPHEN 325 MG TABLET PO PRN (10:45)
[2022-05-10] MEDS ORDERED: ONDANSETRON HCL 4 MG TABLET PO PRN (10:45)
[2022-05-10] MEDS ORDERED: DOCUSATE SODIUM 100 MG CAPSULE PO PRN (10:45)
[2022-05-10] MEDS: HALOPERIDOL 5 MG TABLET PO PRN (14:19)
[2022-05-10] MEDS ORDERED: LORazepam 2 MG/ML VIAL ONE (14:38)
[2022-05-10] MEDS ORDERED: ChlorproMAZINE HCL 50 MG/2 ML AMP ONE (14:38)
[2022-05-10] MEDS ORDERED: LORazepam 2 MG/ML VIAL IM ONE (14:45)
[2022-05-10] MEDS ORDERED: ChlorproMAZINE HCL 50 MG/2 ML AMP IM ONE (14:45)
[2022-05-10] MEDS ORDERED: ChlorproMAZINE HCL 50 MG/2 ML AMP IM PRN (14:45)
[2022-05-10] MEDS: OMEGA-3/DHA/EPA/FISH OIL 1,000 MG CAPSULE PO SCH (15:23)
[2022-05-10] MEDS: TraZODone HCL 50 MG TABLET PO SCH (20:15)
[2022-05-10] MEDS: MELATONIN 5 MG TABLET PO SCH (20:15)
[2022-05-10] MEDS: RisperiDONE 2 MG TABLET PO SCH (20:15)
[2022-05-10 20:28] VITALS: BP 131/69
[2022-05-11 08:42] VITALS: BP 108/66
[2022-05-11] MEDS: OMEGA-3/DHA/EPA/FISH OIL 1,000 MG CAPSULE PO SCH (09:09)
[2022-05-11] MEDS: RisperiDONE 2 MG TABLET PO SCH ×2 (09:09→20:30)
[2022-05-11] MEDS: NICOTINE 14 MG/24 HOUR PATCH TD PRN ×2 (15:52→16:32)
[2022-05-11] MEDS: LORazepam 2 MG TABLET PO PRN (16:12)
[2022-05-11] MEDS ORDERED: LORazepam 2 MG/ML VIAL ONE (17:35)
[2022-05-11] MEDS ORDERED: ChlorproMAZINE HCL 50 MG/2 ML AMP IM ONE (17:45)
[2022-05-11] MEDS ORDERED: LORazepam 2 MG/ML VIAL IM ONE (17:45)
[2022-05-11 20:15] VITALS: BP 145/89
[2022-05-11] MEDS: TraZODone HCL 50 MG TABLET PO SCH (20:30)
[2022-05-11] MEDS: MELATONIN 5 MG TABLET PO SCH (20:34)
[2022-05-12] MEDS: LORazepam 2 MG TABLET PO PRN (08:33)
[2022-05-12] MEDS: OMEGA-3/DHA/EPA/FISH OIL 1,000 MG CAPSULE PO SCH (08:33)
[2022-05-12] MEDS: RisperiDONE 2 MG TABLET PO SCH ×2 (08:33→20:31)
[2022-05-12 20:28] VITALS: BP 122/85
[2022-05-12] MEDS: TraZODone HCL 50 MG TABLET PO SCH (20:31)
[2022-05-12] MEDS: MELATONIN 5 MG TABLET PO SCH (20:31)
[2022-05-13 08:49] VITALS: BP 140/80
[2022-05-13] MEDS: RisperiDONE 2 MG TABLET PO SCH ×2 (09:30→20:27)
[2022-05-13] MEDS: OMEGA-3/DHA/EPA/FISH OIL 1,000 MG CAPSULE PO SCH (09:30)
[2022-05-13] MEDS: LORazepam 2 MG TABLET PO PRN (11:20)
[2022-05-13] MEDS: NICOTINE POLACRILEX 2 MG LOZENGE PO PRN ×2 (11:21→17:33)
[2022-05-13] MEDS: TraZODone HCL 50 MG TABLET PO SCH (20:27)
[2022-05-13] MEDS: MELATONIN 5 MG TABLET PO SCH (20:27)
[2022-05-13 20:34] VITALS: BP 132/85
[2022-05-14 08:21] VITALS: BP 138/67
[2022-05-14] MEDS: OMEGA-3/DHA/EPA/FISH OIL 1,000 MG CAPSULE PO SCH (09:40)
[2022-05-14] MEDS: RisperiDONE 2 MG TABLET PO SCH ×2 (09:40→20:44)
[2022-05-14] MEDS: LORazepam 2 MG TABLET PO PRN ×2 (10:50→17:23)
[2022-05-14 20:21] VITALS: BP 126/78
[2022-05-14] MEDS: TraZODone HCL 50 MG TABLET PO SCH (20:44)
[2022-05-14] MEDS: MELATONIN 5 MG TABLET PO SCH (20:44)
[2022-05-15 08:26] VITALS: BP 135/85
[2022-05-15] MEDS: RisperiDONE 2 MG TABLET PO SCH ×2 (08:30→21:26)
[2022-05-15] MEDS: OMEGA-3/DHA/EPA/FISH OIL 1,000 MG CAPSULE PO SCH (08:30)
[2022-05-15] MEDS: LORazepam 2 MG TABLET PO PRN (08:31)
[2022-05-15] MEDS: NICOTINE POLACRILEX 2 MG LOZENGE PO PRN ×2 (14:22→20:31)
[2022-05-15 20:31] VITALS: BP 145/83
[2022-05-15] MEDS: TraZODone HCL 50 MG TABLET PO SCH (21:26)
[2022-05-15] MEDS: MELATONIN 5 MG TABLET PO SCH (21:27)
[2022-05-16] MEDS: OMEGA-3/DHA/EPA/FISH OIL 1,000 MG CAPSULE PO SCH (08:31)
[2022-05-16] MEDS: RisperiDONE 2 MG TABLET PO SCH ×2 (08:31→20:29)
[2022-05-16 08:41] VITALS: BP 124/64
[2022-05-16] MEDS: LORazepam 2 MG TABLET PO PRN ×2 (09:41→16:28)
[2022-05-16 10:11] LABS: GLUCOMETER DEV NAME(LOC) POC.BV
[2022-05-16] MEDS: NICOTINE POLACRILEX 2 MG LOZENGE PO PRN ×2 (12:22→18:51)
[2022-05-16 20:27] VITALS: BP 122/82
[2022-05-16] MEDS: TraZODone HCL 50 MG TABLET PO SCH (20:29)
[2022-05-16] MEDS: MELATONIN 5 MG TABLET PO SCH (20:29)
[2022-05-17] MEDS: LORazepam 2 MG TABLET PO PRN (08:23)
[2022-05-17] MEDS: NICOTINE POLACRILEX 2 MG LOZENGE PO PRN ×2 (08:23→14:23)
[2022-05-17] MEDS: OMEGA-3/DHA/EPA/FISH OIL 1,000 MG CAPSULE PO SCH (08:23)
[2022-05-17] MEDS: RisperiDONE 2 MG TABLET PO SCH ×2 (08:23→20:24)
[2022-05-17 08:39] VITALS: BP 121/71
[2022-05-17 20:25] VITALS: BP 147/72
[2022-05-17] MEDS: TraZODone HCL 50 MG TABLET PO SCH (20:25)
[2022-05-17] MEDS: MELATONIN 5 MG TABLET PO SCH ×2 (20:32→20:53)
[2022-05-18 06:49] VITALS: BP 129/87
[2022-05-18] MEDS: LORazepam 2 MG TABLET PO PRN ×2 (06:50→16:42)
[2022-05-18 08:19] VITALS: BP 140/72
[2022-05-18] MEDS: RisperiDONE 2 MG TABLET PO SCH ×2 (08:24→20:16)
[2022-05-18] MEDS: OMEGA-3/DHA/EPA/FISH OIL 1,000 MG CAPSULE PO SCH (08:29)
[2022-05-18] MEDS: NICOTINE POLACRILEX 2 MG LOZENGE PO PRN ×2 (13:07→19:19)
[2022-05-18] MEDS: TraZODone HCL 50 MG TABLET PO SCH (20:16)
[2022-05-18] MEDS: MELATONIN 5 MG TABLET PO SCH (20:16)
[2022-05-18 20:17] VITALS: BP 112/66
[2022-05-19] MEDS: LORazepam 2 MG TABLET PO PRN ×2 (06:35→15:04)
[2022-05-19 08:11] VITALS: BP 119/76
[2022-05-19] MEDS: OMEGA-3/DHA/EPA/FISH OIL 1,000 MG CAPSULE PO SCH (09:00)
[2022-05-19] MEDS: RisperiDONE 2 MG TABLET PO SCH ×2 (09:20→20:34)
[2022-05-19] MEDS: NICOTINE POLACRILEX 2 MG LOZENGE PO PRN (15:41)
[2022-05-19 20:23] VITALS: BP 147/81
[2022-05-19] MEDS: MELATONIN 5 MG TABLET PO SCH (20:34)
[2022-05-19] MEDS: TraZODone HCL 50 MG TABLET PO SCH (20:35)
[2022-05-20 08:52] VITALS: BP 112/58
[2022-05-20] MEDS: OMEGA-3/DHA/EPA/FISH OIL 1,000 MG CAPSULE PO SCH (09:00)
[2022-05-20] MEDS: RisperiDONE 2 MG TABLET PO SCH ×2 (09:22→21:31)
[2022-05-20] MEDS: LORazepam 2 MG TABLET PO PRN (14:40)
[2022-05-20] MEDS: NICOTINE POLACRILEX 2 MG LOZENGE PO PRN (17:53)
[2022-05-20 17:54] VITALS: BP 124/95
[2022-05-20 20:41] VITALS: BP 96/62
[2022-05-20] MEDS: MELATONIN 5 MG TABLET PO SCH (21:31)
[2022-05-20] MEDS: TraZODone HCL 50 MG TABLET PO SCH (21:31)
[2022-05-21] MEDS: LORazepam 2 MG TABLET PO PRN (07:58)
[2022-05-21] MEDS: NICOTINE POLACRILEX 2 MG LOZENGE PO PRN ×3 (08:11→21:09)
[2022-05-21 09:00] VITALS: BP 106/69
[2022-05-21] MEDS: OMEGA-3/DHA/EPA/FISH OIL 1,000 MG CAPSULE PO SCH (09:00)
[2022-05-21] MEDS: RisperiDONE 2 MG TABLET PO SCH ×2 (09:52→20:36)
[2022-05-21 20:28] VITALS: BP 105/61
[2022-05-21] MEDS: MELATONIN 5 MG TABLET PO SCH (20:36)
[2022-05-21] MEDS: TraZODone HCL 50 MG TABLET PO SCH (20:36)
[2022-05-22 08:42] VITALS: BP 138/79
[2022-05-22] MEDS: RisperiDONE 2 MG TABLET PO SCH ×2 (08:47→20:25)
[2022-05-22] MEDS: OMEGA-3/DHA/EPA/FISH OIL 1,000 MG CAPSULE PO SCH (08:48)
[2022-05-22] MEDS: NICOTINE POLACRILEX 2 MG LOZENGE PO PRN ×3 (08:51→20:26)
[2022-05-22] MEDS: LORazepam 2 MG TABLET PO PRN (14:14)
[2022-05-22 20:18] VITALS: BP 129/83
[2022-05-22] MEDS: MELATONIN 5 MG TABLET PO SCH (20:25)
[2022-05-22] MEDS: TraZODone HCL 50 MG TABLET PO SCH (20:25)
[2022-05-23 04:49] VITALS: BP 114/86
[2022-05-23] MEDS: NICOTINE POLACRILEX 2 MG LOZENGE PO PRN ×3 (05:52→20:21)
[2022-05-23 07:06] LABS: GLUCOMETER DEV NAME(LOC) POC.BV
[2022-05-23 08:21] VITALS: BP 109/77
[2022-05-23] MEDS: RisperiDONE 2 MG TABLET PO SCH ×2 (08:41→20:13)
[2022-05-23] MEDS: OMEGA-3/DHA/EPA/FISH OIL 1,000 MG CAPSULE PO SCH (08:46)
[2022-05-23] MEDS: LORazepam 2 MG TABLET PO PRN (15:59)
[2022-05-23] MEDS: TraZODone HCL 50 MG TABLET PO SCH (20:13)
[2022-05-23] MEDS: MELATONIN 5 MG TABLET PO SCH (20:13)
[2022-05-23 21:17] VITALS: BP 105/65
[2022-05-24 05:40] VITALS: BP 130/87
[2022-05-24] MEDS: NICOTINE POLACRILEX 2 MG LOZENGE PO PRN ×3 (05:50→15:05)
[2022-05-24] MEDS: RisperiDONE 2 MG TABLET PO SCH ×2 (08:46→20:10)
[2022-05-24] MEDS: OMEGA-3/DHA/EPA/FISH OIL 1,000 MG CAPSULE PO SCH (08:46)
[2022-05-24 08:50] VITALS: BP 136/66
[2022-05-24] MEDS: LORazepam 2 MG TABLET PO PRN ×2 (09:34→18:10)
[2022-05-24] MEDS: HALOPERIDOL 5 MG TABLET PO PRN (10:22)
[2022-05-24] MEDS: MELATONIN 5 MG TABLET PO SCH (20:10)
[2022-05-24] MEDS: TraZODone HCL 50 MG TABLET PO SCH (20:10)
[2022-05-24 21:25] VITALS: BP 129/71
[2022-05-25] MEDS: LORazepam 2 MG TABLET PO PRN ×3 (08:16→18:14)
[2022-05-25] MEDS: OMEGA-3/DHA/EPA/FISH OIL 1,000 MG CAPSULE PO SCH (08:16)
[2022-05-25] MEDS: HALOPERIDOL 5 MG TABLET PO PRN (08:16)
[2022-05-25] MEDS: RisperiDONE 2 MG TABLET PO SCH ×2 (08:16→20:38)
[2022-05-25] MEDS: NICOTINE POLACRILEX 2 MG LOZENGE PO PRN ×3 (08:19→18:17)
[2022-05-25 08:31] VITALS: BP 128/87
[2022-05-25 20:27] VITALS: BP 141/85
[2022-05-25] MEDS: MELATONIN 5 MG TABLET PO SCH (20:38)
[2022-05-25] MEDS: TraZODone HCL 50 MG TABLET PO SCH (20:38)
[2022-05-26] MEDS: NICOTINE POLACRILEX 2 MG LOZENGE PO PRN ×2 (07:49→13:36)
[2022-05-26] MEDS: LORazepam 2 MG TABLET PO PRN ×2 (07:49→12:31)
[2022-05-26 08:40] VITALS: BP 117/76
[2022-05-26] MEDS: HALOPERIDOL 5 MG TABLET PO PRN ×2 (08:44→13:35)
[2022-05-26] MEDS: OMEGA-3/DHA/EPA/FISH OIL 1,000 MG CAPSULE PO SCH (09:00)
[2022-05-26] MEDS: RisperiDONE 2 MG TABLET PO SCH ×2 (09:56→20:52)
[2022-05-26 20:51] VITALS: BP 124/78
[2022-05-26] MEDS: MELATONIN 5 MG TABLET PO SCH (20:52)
[2022-05-26] MEDS: TraZODone HCL 50 MG TABLET PO SCH (20:52)
[2022-05-27] MEDS: LORazepam 2 MG TABLET PO PRN (04:43)
[2022-05-27] MEDS: NICOTINE POLACRILEX 2 MG LOZENGE PO PRN ×3 (08:42→19:39)
[2022-05-27] MEDS: HALOPERIDOL 5 MG TABLET PO PRN (08:42)
[2022-05-27 08:43] VITALS: BP 152/85
[2022-05-27] MEDS: OMEGA-3/DHA/EPA/FISH OIL 1,000 MG CAPSULE PO SCH (09:00)
[2022-05-27] MEDS: RisperiDONE 2 MG TABLET PO SCH ×2 (09:44→21:04)
[2022-05-27 20:34] VITALS: BP 138/86
[2022-05-27] MEDS: MELATONIN 5 MG TABLET PO SCH (21:04)
[2022-05-27] MEDS: TraZODone HCL 50 MG TABLET PO SCH (21:04)
[2022-05-28 08:29] VITALS: BP 124/99
[2022-05-28] MEDS: RisperiDONE 2 MG TABLET PO SCH ×2 (08:49→20:33)
[2022-05-28] MEDS: OMEGA-3/DHA/EPA/FISH OIL 1,000 MG CAPSULE PO SCH (08:50)
[2022-05-28] MEDS: NICOTINE POLACRILEX 2 MG LOZENGE PO PRN ×2 (10:34→16:39)
[2022-05-28] MEDS ORDERED: LORazepam 2 MG/ML VIAL IM ONE (12:30)
[2022-05-28] MEDS ORDERED: DiphenhydrAMINE HCL 50 MG/ML VIAL IM ONE (12:30)
[2022-05-28] MEDS ORDERED: HALOPERIDOL LACTATE 5 MG/ML VIAL IM ONE (12:30)
[2022-05-28] MEDS: LORazepam 2 MG TABLET PO PRN (17:16)
[2022-05-28 20:24] VITALS: BP 140/80
[2022-05-28] MEDS: TraZODone HCL 50 MG TABLET PO SCH (20:33)
[2022-05-28] MEDS: MELATONIN 5 MG TABLET PO SCH (20:33)
[2022-05-29 08:25] VITALS: BP 127/85
[2022-05-29] MEDS: LORazepam 2 MG TABLET PO PRN (08:55)
[2022-05-29] MEDS: RisperiDONE 2 MG TABLET PO SCH (08:55)
[2022-05-29] MEDS: HALOPERIDOL 5 MG TABLET PO PRN (08:55)
[2022-05-29] MEDS: OMEGA-3/DHA/EPA/FISH OIL 1,000 MG CAPSULE PO SCH (08:57)
[2022-05-29] MEDS: NICOTINE POLACRILEX 2 MG LOZENGE PO PRN ×2 (08:59→13:02)
[2022-05-29] MEDS ORDERED: MELA5TAB40 PO (09:28)
[2022-05-29] MEDS ORDERED: TRAZ-252 PO (09:28)
[2022-05-29] MEDS ORDERED: RISP2TAB45 PO (09:28)
== END 2022-05-29 13:58 | disposition home or self-care (01) | DRG 885 ==
LOC: EMS 13:57 → B2S 16:33
PROVIDERS: ADMIT Psychiatry & Neurology Psychiatry; ATTEND Psychiatry & Neurology Psychiatry
DX: F25.0 Schizoaffective disorder, bipolar type (principal); E87.1 Hypo-osmolality and hyponatremia; R45.851 Suicidal ideations; F31.30 Bipolar disorder, current episode depressed, mild or moderate severity, unspecified; F15.10 Other stimulant abuse, uncomplicated; G40.909 Epilepsy, unspecified, not intractable, without status epilepticus; I10 Essential (primary) hypertension; E16.2 Hypoglycemia, unspecified; Z20.822 Contact with and (suspected) exposure to COVID-19; J44.9 Chronic obstructive pulmonary disease, unspecified; Z79.899 Other long term (current) drug therapy; Z87.891 Personal history of nicotine dependence; Z91.51 Personal history of suicidal behavior; Z88.8 Allergy status to other drugs, medicaments and biological substances; Z71.51 Drug abuse counseling and surveillance of drug abuser
CPT/HCPCS: 80053; 84702; 85025; 99285; G0480; J1200; J1630; J2060; J3230; J3535; Q9967

== ENCOUNTER 2022-06-02 18:31 | Emergency (ER) | payer MEDICARE, MEDICAID ==
[~2022-06-02] VITALS: Ht 165.1 cm; Wt 85.5 kg
[~2022-06-02 18:31] MED LIST changes: -OLAN10TA26 PO; +TRAZ-252 PO; -TRAZ150T80 PO
[2022-06-02 20:40] LABS: AMPHET/METH SCREEN,URINE NEGATIVE (NEGATIVE); BARBITURATE SCREEN, URINE NEGATIVE (NEGATIVE); BENZODIAZEPINES SCREEN,URINE NEGATIVE (NEGATIVE); CANNABINOID SCREEN,URINE NEGATIVE (NEGATIVE); COCAINE SCREEN,URINE NEGATIVE (NEGATIVE); METHADONE SCREEN, URINE NEGATIVE (NEGATIVE); OPIATE SCREEN,URINE NEGATIVE (NEGATIVE)
[2022-06-02 20:50] LABS: PHENCYCLIDINE SCREEN,URINE NEGATIVE (NEGATIVE)
[2022-06-02 21:36] VITALS: BP 140/91
== END 2022-06-02 21:37 | disposition home or self-care (01) ==
LOC: EMS 18:31
DX: F20.9 Schizophrenia, unspecified (principal); J45.909 Unspecified asthma, uncomplicated; F31.9 Bipolar disorder, unspecified; F17.210 Nicotine dependence, cigarettes, uncomplicated; F15.90 Other stimulant use, unspecified, uncomplicated; Z86.69 Personal history of other diseases of the nervous system and sense organs; Z86.39 Personal history of other endocrine, nutritional and metabolic disease; Z98.890 Other specified postprocedural states; Z88.8 Allergy status to other drugs, medicaments and biological substances
CPT/HCPCS: 99283; 99284